=== PATIENT | male | born 1950 | race Caucasian/White ===

== ENCOUNTER 2024-03-19 06:41 | Outpatient (OUT) | payer MEDICARE, SELFPAY ==
[2024-03-19 06:59] LABS: Basophils Absolute Auto 0.1 10^3/uL (0.0-0.1); Basophils Percent Auto 1.5 % (0.2-2.0); Eosinophils Absolute Auto 0.2 10^3/uL (0.0-0.7); Hematocrit 44.5 % (42.0-54.0); Hemoglobin 14.8 g/dL (14.0-18.0); Immature Granulocytes Abs Auto 0.01 10^3/uL (0.00-0.03); Immature Granulocytes Pct Auto 0.2 % (0.0-0.5); Lymphocytes Absolute Auto 1.2 10^3/uL (1.2-3.8); Lymphocytes Percent Auto 25.6 % (20.5-60.0); Mean Corpuscular HGB Conc 33.3 g/dL (29.9-35.2); Mean Corpuscular Volume 90.1 fL (80.0-94.0); Mean Platelet Volume 11.5 fL (9.5-13.5); Monocytes Absolute Auto 0.7 10^3/uL (0.3-0.8); Neutrophils Absolute Auto 2.5 10^3/uL (1.4-6.5); Neutrophils Percent Auto 52.7 % (43.0-75.0); Platelet Count 148 10^3/uL (150-450); Red Blood Count 4.94 10^6/uL (4.70-6.10); Red Cell Distribution Width 11.9 % (11.0-15.0); White Blood Count 4.8 10^3/uL (4.0-11.0)
[2024-03-19 07:41] LABS: Alanine Aminotransferase 24 U/L (16-63); Albumin Globulin Ratio 1.4; Albumin Level 3.7 g/dL (3.4-5.0); Alkaline Phosphatase 46 U/L (46-116); Anion Gap 8.9; Aspartate Amino Transferase 23 U/L (15-37); BUN Creatinine Ratio 34.8; Bilirubin Total 0.7 mg/dL (0.2-1.0); Carbon Dioxide 31.3 mmol/L (21.0-32.0); Chloride 105 mmol/L (98-107); Chol HDL Ratio 2.9; Cholesterol 168 mg/dL (<=200); Estimated GFR (African America >60 (>=60); Estimated GFR (Non-African Ame >60 (>=60); Globulin 2.7 g/dL; Glucose 78 mg/dL (74-106); HDL Cholesterol 58 mg/dL (40-60); LDL Cholesterol Calculated 104.6 mg/dL; Potassium 4.2 mmol/L (3.5-5.1); Sodium 141 mmol/L (136-145); Thyroid Stimulating Hormone 1.832 uIU/mL (0.358-3.740); Total Protein 6.4 g/dL (6.4-8.2); Triglycerides 27 mg/dL (<=150); VLDL CHOLESTEROL 5.4 mg/dL
[2024-03-19 07:53] LABS: Estimated Average Glucose 111 mg/dL; Glycohemoglobin A1C 5.5 % (4.5-6.2)
[2024-03-19 08:39] LABS: Free T4 0.84 ng/dL (0.76-1.46)
== END 2024-03-19 06:42 | disposition home or self-care (01) ==
LOC: LAB 06:41
PROVIDERS: PCP Family Medicine; Visit Provider Family Medicine
DX: N52.9 Male erectile dysfunction, unspecified (principal); K59.00 Constipation, unspecified; E03.9 Hypothyroidism, unspecified; E78.5 Hyperlipidemia, unspecified; Z12.5 Encounter for screening for malignant neoplasm of prostate; R73.09 Other abnormal glucose
CPT/HCPCS: 36415; 80053; 80061; 83036; 84153; 84154; 84439; 84443; 85025

== ENCOUNTER 2024-05-06 06:40 | Outpatient (OUT) | payer MEDICARE, SELFPAY ==
--- OUTSIDE RECORDS SUMMARY | 2024-05-06 06:42 | XMS_ITS | CCD ---
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 Name Role Phone JEN, DR ESCAMILLA Admitting Unavailable NILL, DR ESCAMILLA Attending Unavailable NILL, DR ESCAMILLA Consulting Unavailable HOY, DR SÁNCHEZ Primary Care Unavailable HOY, DR SÁNCHEZ Primary Care Unavailable HOY, DR SÁNCHEZ Admitting Unavailable HOY, DR SÁNCHEZ Attending Unavailable HOY, DR SÁNCHEZ Consulting Unavailable HOY, DR SÁNCHEZ Primary Care Unavailable HOY, DR SÁNCHEZ Admitting Unavailable HOY, DR SÁNCHEZ Attending Unavailable HOY, DR SÁNCHEZ Consulting Unavailable NILL, DR ESCAMILLA Admitting Unavailable NILL, DR ESCAMILLA Attending Unavailable NILL, DR ESCAMILLA Consulting Unavailable HOY, DR SÁNCHEZ Primary Care Unavailable SHAIJOSIE Consulting Unavailable DIPTIKOARINA HAAS Consulting Unavailable Gonzalo Almanza Primary Care Physician Emily Wren Unavailable Unavailable MAYA GUILLAUME Attending Unavailable MAYA GUILLAUME Attending Unavailable MAYA GUILLAUME Attending Unavailable MAYA GUILLAUME Admitting Unavailable Allergies Allergy Classification Reported Allergen(s) Allergy Type Date of Onset Reaction(s) Facility (1 source) environmenetal; Translations: [environmenetal] Propensity to adverse reactions (disorder) [facility] Repository Medications Current Medications Medication Drug Class(es) Dates Sig (Normalized) Sig (Original) aspirin 81 mg delayed release oral tablet (3 sources) Platelet Aggregation Inhibitor, Nonsteroidal Anti-inflammatory Drug Start: 02-18-2020 take 1 tablet by mouth every other day aspirin 81 mg Oral EC Tab 81 mg = 1 tab(s), Oral, Every other day, Refills(s) 0 Start Date: 02/18/20 Status: Ordered Chondroitin Sulfates / Glucosamine (3 sources) Start: 02-18-2020 take 1 capsule by mouth once daily Chondroitin-Gluc osamine 1 cap(s), Oral, Daily, Refill(s) 0 Start Date: 02/18/20 Status: Ordered Diclofenac 75mg Tab-DR (3 sources) Start: 02-17-2020 take 1 tablet by mouth twice daily Diclofenac 75mg Tab-DR 75 mg, Oral, BID, Refills(s) 0 Start Date: 02/17/20 Status: Ordered diphenhydrAMINE hydrochloride 25 mg oral tablet (3 sources) Histamine-1 Receptor Antagonist Start: 02-18-2020 take 1 tablet by mouth once daily Benadryl 25 mg Tab 1 tab, Oral, Daily, Refills(s) 0 Start Date: 02/18/20 Status: Ordered famotidine 20 mg oral tablet (3 sources) Histamine-2 Receptor Antagonist Start: 02-18-2020 take 1 tablet by mouth once daily famotidine 20 mg Tab 20 mg = 1 tab(s), Oral, Daily, Refills(s) 0 Start Date: 02/18/20 Status: Ordered guaiFENesin (3 sources) Start: 02-18-2020 take 1 tablet by mouth once daily Mucinex D 1 tab(s), Oral, Daily, Refill(s) 0 Start Date: 02/18/20 Status: Ordered {2 (480 ML Magnesium Sulfate 0.0277 MEQ/ML / potassium sulfate 0.0374 MEQ/ML / sodium sulfate 0.257 MEQ/ML Oral Solution) } Pack [Suprep Bowel Prep Kit] (2 sources) Start: 12-04-2020 Suprep Bowel Prep Kit oral liquid 177 mL, Oral, As Directed for 2 dose(s), 1 kit(s), Refill(s) 0, dilute each 177 ml bottle and drink according to box directions or as directed by physician, [facility]/pharmacy #[id number], 190.5, cm, 12/04/20 11:54:00 EDT, Height/Length Dosing, 75.7, kg, 12/04/20... Start Date: 12/04/20 Status: Ordered melatonin 5 mg oral capsule (3 sources) Start: 08-06-2020 take 1 mg by mouth once daily at bedtime melatonin 5 mg oral capsule mg cap(s), Oral, Once a day (at bedtime), Refills(s) 0 Start Date: 08/06/20 Status: Ordered Multivitamin, Therapeutic w/ Minerals (3 sources) Start: 02-18-2020 take 1 tablet by mouth once daily Multivitamin, Therapeutic w/ Minerals 1 tab(s), Oral, Daily, Refill(s) 0 Start Date: 02/18/20 Status: Ordered omeprazole 20 mg oral tablet (3 sources) Proton Pump Inhibitor Start: 07-20-2016 take 20 mg by mouth once daily omeprazole 20 mg, Oral, Daily, Refills(s) 0, Control of stomach acid Start Date: 07/20/16 Status: Ordered sildenafil 100 mg oral tablet (3 sources) Phosphodiesterase 5 Inhibitor Start: 02-17-2020 take 1 tablet by mouth once daily Viagra 100 mg Tab 100 mg = 1 tab(s), Oral, Daily, 1 hour before sexual activity, Refills(s) 0 Start Date: 02/17/20 Status: Ordered tamsulosin hydrochloride 0.4 mg oral capsule (1 source) alpha-Adrenergic Antonio Start: 03-03-2022 take 1 capsule by mouth once daily Flomax 0.4 mg Cap 0.4 mg = 1 cap(s), Oral, Daily, # 90 cap(s), Refills(s) 3, Pharmacy: [id number], 190.5, cm, 08/10/21 9:33:00 EST, Height/Length Dosing, 77, kg, 08/10/21 9:33:00 EST, Weight Dosing Start Date: 03/03/22 Status: Ordered Problems Active Problems Problem Classification Problem Date Documented Da te Episodic/Chronic Allergic reactions (3 sources) Solar degeneration 04-24-2019 Episodic Anal and rectal conditions (3 sources) Perirectal abscess 05-19-2021 Episodic Blindness and vision defects (3 sources) Visual impairment 02-17-2020 Chronic Cancer of prostate (7 sources) Adenocarcinoma of prostate; Translations: [Malignant tumor of prostate] Onset: 3 04-09-2019 Chronic Cancer of prostate (5 sources) Personal history of malignant neoplasm of prostate; Translations: [History of malignant neoplasm of prostate] Onset: 1 08-01-2019 Episodic Chronic obstructive pulmonary disease and bronchiectasis (3 sources) Chronic obstructive lung disease 08-17-2016 Chronic Diverticulosis and diverticulitis (1 source) Diverticulosis of large intestine without perforation or abscess without bleeding; Translations: [DVRTCLOS LG INT NO PERF/ABSC W/O BL] Onset: 1 Chronic Esophageal disorders (3 sources) Gastroesophageal reflux disease 07-17-2019 Chronic Genitourinary symptoms and ill-defined conditions (8 sources) Nocturia; Translations: [Poor urinary stream] Onset: 1 07-17-2019 Episodic Hemorrhoids (3 sources) External hemorrhoids 02-17-2020 Episodic Hyperplasia of prostate (9 sources) Benign prostatic hyperplasia with lower urinary tract symptoms; Translations: [Benign prostatic hypertrophy with outflow obstruction] Onset: 1 08-01-2019 Chronic Neoplasms of unspecified nature or uncertain behavior (3 sources) Neoplasm of uncertain behavior of skin 04-09-2019 Episodic Noninfectious gastroenteritis (3 sources) Chronic diarrhea 02-17-2020 Episodic Other diseases of kidney and ureters (1 source) Urinary tract obstruction; Translations: [Other obstructive and reflux uropathy] Onset: 3 Episodic Other gastrointestinal disorders (1 source) Irritable bowel syndrome without diarrhea; Translations: [IRRITABLE BOWEL SYND W/O DIARRHEA] Onset: 1 Chronic Other gastrointestinal disorders (3 sources) Celiac disease 04-11-2019 Chronic Other gastrointestinal disorders (3 sources) Alteration in bowel elimination 12-04-2020 Episodic Other gastrointestinal disorders (3 sources) Decreased stool caliber 12-04-2020 Episodic Other male genital disorders (3 sources) Impotence 07-17-2019 Chronic Other male genital disorders (2 sources) Male erectile dysfunction, unspecified; Translations: [Erectile dysfunction] Onset: 3 Chronic Other male genital disorders (3 sources) History of prostatitis 04-09-2019 Episodic Other skin disorders (3 sources) Actinic keratosis 02-18-2020 Episodic Other skin disorders (3 sources) Hyperkeratosis 04-24-2019 Episodic Residual codes; unclassified (3 sources) H/O: anticoagulant therapy 07-17-2019 Episodic Screening and history of mental health and substance abuse codes (4 sources) Personal history of nicotine dependence; Translations: [Ex-smoker] Onset: 1 07-17-2019 Episodic Spondylosis; intervertebral disc disorders; other back problems (6 sources) Cervical disc disorder 04-09-2019 Chronic Unclassified (1 source) CONTACT W/AND (SUSP) EXPOS COVID-19; Translations: [CONTACT W/AND (SUSP) EXPOS COVID-19] Onset: 1 Unclassified (3 sources) Body mass index 20-24 - normal 05-18-2021 Past or Other Problems Problem Classification Problem Date Documented Da te Episodic/Chronic Other aftercare (1 source) alf (current) use of aspirin; Translations: [MCC CURRENT USE OF ASPIRIN] Onset: 12-30-2020 Episodic Other gastrointestinal disorders (4 sources) Change in bowel habit; Translations: [CHANGE IN BOWEL HABIT] Onset: 12-23-2020 Episodic Other gastrointestinal disorders (1 source) Other fecal abnormalities; Translations: [OTHER FECAL ABNORMALITIES] Onset: 12-30-2020 Episodic Results Test Name Value Interpretation Reference Range Facility Ambulatory Visit Summaryon 0 09-19-2023 Ambulatory Visit Summary SHAD OBRIEN :1950 Visit Date:09/19/2023 Ambulatory Visit Instructions Your Diagnosis Personal history of prostate cancer BPH with urinary obstruction Impotence Your Care Team Attending Physician - MAYA GUILLAUME PA-C Primary Care Physician - Gonzalo Almanza MD This Is Your Medications List Contact prescribing physician if questions or concerns aspirin (aspirin 81 mg Oral EC Tab) chondroitin-glucosamine (Chondroitin-Glucosamin e) diclofenac (Diclofenac 75mg Tab-DR) diphenhydrAMINE (Benadryl 25 mg Tab) famotidine (famotidine 20 mg Tab) guaifenesin-pseudoephed rine (Mucinex D) melatonin (melatonin 5 mg oral capsule) multivitamin with minerals (Multivitamin, Therapeutic w/ Minerals) omeprazole sildenafil (Viagra 100 mg Tab) Procedures Performed Cystoscopy with Brachytherapy implant for prostate cancer (08/17/2016), Transrectal biopsy of prostate using ultrasound (US) guidance (05/06/2016), left femur fracture with bone graft (1966), Colonoscopy, right eye surgery. Discharge Vitals Height 190 cm Height 75 in Weight 77 kg Weight 169.4 lb BMI 21.33 What to do next Scheduled Follow-Up Appointments Monday 8:20 AM EST With: MAYA GUILLAUME PA-C Where: [facility] Patient Educationon 09-19-19 Patient Education Urology Benign Prostatic Hyperplasia Benign prostatic hyperplasia (BPH) is an enlarged prostate gland that is caused by the normal aging process. The prostate may get bigger as a man gets older. The condition is not caused by cancer. The prostate is a walnut-sized gland that is involved in the production of semen. It is located in front of the rectum and below the bladder. The bladder stores urine. The urethra carries stored urine out of the body. An enlarged prostate can press on the urethra. This can make it harder to pass urine. The buildup of urine in the bladder can cause infection. Back pressure and infection may progress to bladder damage and kidney (renal) failure. What are the causes? This condition is part of the normal aging process. However, not all men develop problems from this condition. If the prostate enlarges away from the urethra, urine flow will not be blocked. If it enlarges toward the urethra and compresses it, there will be problems passing urine. What increases the risk? This condition is more likely to develop in men older than 50 years. What are the signs or symptoms? Symptoms of this condition include: ? Getting up often during the night to urinate. ? Needing to urinate frequently during the day. ? Difficulty starting urine flow. ? Decrease in size and strength of your urine stream. ? Leaking (dribbling) after urinating. ? Inability to pass urine. This needs immediate treatment. ? Inability to completely empty your bladder. ? Pain when you pass urine. This is more common if there is also an infection. ? Urinary tract infection (UTI). How is this diagnosed? This condition is diagnosed based on your medical history, a physical exam, and your symptoms. Tests will also be done, such as: ? A post-void bladder scan. This measures any amount of urine that may remain in your bladder after you finish urinating. ? A digital rectal exam. In a rectal exam, your health care provider checks your prostate by putting a lubricated, gloved finger into your rectum to feel the back of your prostate gland. This exam detects the size of your gland and any abnormal lumps or growths. ? An exam of your urine (urinalysis). ? A prostate specific antigen (PSA) screening. This is a blood test used to screen for prostate cancer. ? An ultrasound. This test uses sound waves to electronically produce a picture of your prostate gland. Your health care provider may refer you to a specialist in kidney and prostate diseases (urologist). How is this treated? Once symptoms begin, your health care provider will monitor your condition (active surveillance or watchful waiting). Treatment for this condition will depend on the severity of your condition. Treatment may include: ? Observation and yearly exams. This may be the only treatment needed if your condition and symptoms are mild. ? Medicines to relieve your symptoms, including: ? Medicines to shrink the prostate. ? Medicines to relax the muscle of the prostate. ? Surgery in severe cases. Surgery may include: ? Prostatectomy. In this procedure, the prostate tissue is removed completely through an open incision or with a laparoscope or robotics. ? Transurethral resection of the prostate (TURP). In this procedure, a tool is inserted through the opening at the tip of the penis (urethra). It is used to cut away tissue of the inner core of the prostate. The pieces are removed through the same opening of the penis. This removes the blockage. ? Transurethral incision (TUIP). In this procedure, small cuts are made in the prostate. This lessens the prostate's pressure on the urethra. ? Transurethral microwave thermotherapy (TUMT). This procedure uses microwaves to create heat. The heat destroys and removes a small amount of prostate tissue. ? Transurethral needle ablation (TUNA). This procedure uses radio frequencies to destroy and remove a small amount of prostate tissue. ? Interstitial laser coagulation (ILC). This procedure uses a laser to destroy and remove a small amount of prostate tissue. ? Transurethral electrovaporization (TUVP). This procedure uses electrodes to destroy and remove a small amount of prostate tissue. ? Prostatic urethral lift. This procedure inserts an implant to push the lobes of the prostate away from the urethra. Follow these instructions at home: ? Take bibs-vxz-vlqjkbi and prescription medicines only as told by your health care provider. ? Monitor your symptoms for any changes. Contact your health care provider with any changes. ? Avoid drinking large amounts of liquid before going to bed or out in public. ? Avoid or reduce how much caffeine or alcohol you drink. ? Give yourself time when you urinate. ? Keep all follow-up visits. This is important. Contact a health care provider if: ? You have unexplained back pain. ? Your symptoms do not get better with treatment. ? You develop side effects from the medicine (more content not included)... Normal [facility] Urology Office/Clinic Noteon 09-19-2023 Urology Office/Clinic Note Chief Complaint 1yr PSA HPI Staff 73 year old male here for 1 year with PSA. Previous DX: prostate cancer, BPH w/LUTS and impotence. S/P Brachytherapy 2017. *Weaned off of Flomax since last encounter. Viagra from PCP Denies all urinary symptoms at this time. PSA <0.1 done 09/06/23 <0.1 done 08/23/22 History of Present Illness continues to do well w/o the Flomax. no major health changes in the past year. no gross hematuria, infections, pain. Review of Systems PHQ Score Initial Depression Screen Score: 0 SCORE no fever, chills, malaise, myalgia. no rash/lesions. no chest pain, palpitations, or SOB. no abdominal pain, nausea, vomiting. no unilateral calf swelling, redness, pain Physical Exam Vitals & Measurements HT: 75 in HT: 190 cm WT: 77 kg WT: 169.4 lb BMI: 21.33 General: nontoxic, NAD Mouth: moist mucosa Lungs: normal respiratory effort Cardio: regular rate, good distal perfusion Abdomen: nondistended, no suprapubic distention or tenderness, no CVA tenderness Neurologic: Grossly normal Skin: No rashes or suspicious lesions Assessment/Plan UA completed in office today shows no microhematuria or signs of infection. 1. Personal history of prostate cancer (Z85.46: Personal history of malignant neoplasm of prostate) PSA <0.1 remains stable sp brachytherapy 2017 for GL 6, PSA 7.[address] Staton released him from his care following this past visit. pt will continue following w our office. f/u 1 yr w PSA prior Ordered: E&M of Est. Patient Low 20-29 Min 96221 PSA Total Urnls Dip Stick Auto w/o Microscopy POC 48129 2. BPH with urinary obstruction (N40.1: Benign prostatic hyperplasia with lower urinary tract symptoms) weaned off Flomax following our ov last year. has been doing well. Pt is currently taking no bladder/prostate medication and is highly satisfied with overall symptom control. No indication for treatment at this time. Continue to monitor. Ordered: E&M of Est. Patient Low 20-29 Min 34729 3. Impotence (N52.9: Male erectile dysfunction, unspecified) continues on Viagra per PCP. works well. no bothersome side effects. Ordered: E&M of Est. 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 Medications aspirin 81 mg Oral EC Tab, 81 mg= 1 tab(s), Oral, Every other day Benadryl 25 mg Tab, 1 tab, Oral, Daily Chondroitin-Glucosamine , 1 cap(s), Oral, Daily Diclofenac 75mg Tab-DR, 75 mg, Oral, BID famotidine 20 mg Tab, 20 mg= 1 tab(s), Oral, Daily melatonin 5 mg oral capsule, Oral, Once a day (at bedtime) Mucinex D, 1 tab(s), Oral, Daily Multivitamin, Therapeutic w/ Minerals, 1 tab(s), Oral, Daily omeprazole, 20 mg, Oral, Daily Viagra 100 mg Tab, 100 mg= 1 tab(s), Oral, Daily Allergies No Known Allergies Social History Alcohol - Low Risk, 07/20/2016 Substance Abuse - Denies Substance Abuse, 07/20/2016 Tobacco - Denies Tobacco Use, 07/20/2016 Former smoker, quit more than 30 days ago Tobacco Use:. Never Smokeless Tobacco Use:. Cigarettes, Stopped age 49 Years. Household tobacco concerns: No. Yes, 09/19/2023 Family History Cancer of prostate: Uncle. Immunizations Vaccine Date Status influenza virus vaccine, inactivated 06/08/2020 Recorded pneumococcal 23-valent vaccine 03/28/2019 Recorded pneumococcal 13-valent vaccine 03/23/2018 Recorded influenza virus vaccine, inactivated 06/18/2013 Recorded Lab Results Ambulatory Point of Care Results Bilirubin Urine Dipstick: Negative (09/19/23 08:40:00) Blood Urine Dipstick: Negative (09/19/23 08:40:00) Glucose Urine Dipstick: Negative (09/19/23 08:40:00) Ketones Urine Dipstick: Negative (09/19/23 08:40:00) Leukocytes Urine Dipstick: Negative (09/19/23 08:40:00) Nitrite Urine Dipstick: Negative (09/19/23 08:40:00) Protein Urine Dipstick: Negative (09/19/23 08:40:00) Specific [place] Urine Dipstick: 1.015 (09/19/23 08:40:00) Urine Appearance Urine Dipstick: C (more content not included)... Normal [facility] Comment on above: Result Comment: Elec tronically Signed By: MAYA GUILLAUME PA-C\.br\Date and Time Signed: 09/19/23 09:42 EST Consent for Treatmenton Consent for Treatment [id number] IFF Normal [facility] PSA Totalon 09-06-2023 PSA Total <0.1 Low 0.1-3.5 [facility] Comment on above: Result Comment: The concentration of PSA determined by different manufacturers can vary due to differences in assay methods and reagent specificity. Values obtained from different assay methods cannot be used interchangeably. The methodology used for this result was chemiluminescence using [employer]'s Access Hybritech PSA reagent. Performed By: #### 1 [id number] #### [facility] [address] [place] [address] CHEMISTRYOrdered By: SYSTEM SYSTEM on 08-23-2022 Prostate specific Ag [Mass/Vol] ng/mL Normal 0.1 - 3.5 ng/mL [facility] Remisol CNOVon 10-13-2021 CNOV Office Visit (RADTSA ) SHAD OBRIEN ([id number]) 1950 M Date Time Provider Department 10/13/21 10:00 AM Christi STATON During your visit today, we recorded the following information about you: Temperature Pulse Respiration Blood pressure 96.2 degrees 60/minute 16/minute 100/69 Weight 78 kg G Antoni Staton MD 10/13/2021 10:00 AM Signed Radiation Oncology - Follow Up Note PATIENT NAME: Shad Obrien PATIENT DIAGNOSIS: Prostate cancer with prior treatments, I-125 brachytherapy delivered July 2016. INTERVAL HISTORY: Doing well. Denies new problems or concerns. Chronic issues with celiac disease stable. PSA HISTORY: PSA. (no units) Date Value 08/03/2021 <0.1 07/30/2020 0.2 04/02/2019, 0.6 ALLERGIES No Known Allergies tamsulosin (FLOMAX) 0.4 mg Take 0.4 mg by mouth once daily. famotidine (PEPCID) 20 mg tablet Take 20 mg by mouth. diclofenac, EC, (VOLTAREN) 75 mg EC tablet Take 75 mg by mouth. aspirin, enteric coated (ASPIRIN, ENTERIC COATED) 81 mg EC tablet Take 81 mg by mouth. W8-ggrbodg-omxc-B6-fidelia er-FA 032-6-96-5-1.5 mg tab Take by mouth. sildenafil (VIAGRA) 100 mg tablet Take 100 mg by mouth. REVIEW OF SYSTEMS: D/N = 4/ Hematuria: none Dysuria: none Incontinence: none Urgency: none Catheter use: none Medications to aid urination: y - Total AUA Score: 6 Bowel movement frequency: 1/day Bowel movement quality: variable: Occasional constipation Blood per rectum: none Last colonoscopy: 8 y Sexual activity: Unable to maintain erections PHYSICAL EXAM: BP 100/69 Pulse 60 Temp (!) 35.7 ?C (96.2 ?F) Resp 16 Wt 78 kg (172 lb) KPS: 100 General appearance: Alert and oriented. No acute distress. Abdomen: Normal abdominal exam, Abdomen soft, non-tender. No masses, organomegaly. Rectal exam def Extremities: No deformities, edema, skin discoloration, clubbing or cyanosis. Lymph Nodes: No cervical lymphadenopathy, No supraclavicular lymphadenopathy. Skin: Skin color, texture, turgor normal, no suspicious rashes or lesions. ASSESSMENT/PLAN: Prostate cancer. Status post prostate brachytherapy 2017. Doing well with stable undetectable PSA. Continues close follow-up with Dr. Green. Given length of time with stable low PSA recommend follow-up with me on an as-needed basis. Encouraged patient to call should he have questions or concerns in the future. Signed by: Christi Staton MD cc: Gonzalo Almanza MD [address] [place] [address] Dr. Green Portions of the above note extracted and edited from previous visit as well as active information included in the EMR. Lyndsey Parker RN 10/13/2021 9:55 AM Signed AUA 6 Lyndsey Parker RN Referring Provider: Christi STATON [[id number]] Allergies As of Date: 10/13/2021 (No Known Allergies) Date Reviewed: 10/13/2021 Reviewed by: Lyndsey Parker RN - Fully Assessed Reason for Visit: Prostate Cancer [590] Primary Visit Diagnosis:Malignant neoplasm of prostate (HCC) [C61] Order(s):PSA (OUTSIDE) [[id number]] Order #: [id number] Prescriptions as of 10/13/2021 - tamsulosin (FLOMAX) 0.4 mg Take 0.4 mg by mouth once daily. - famotidine (PEPCID) 20 mg tablet Take 20 mg by mouth. - diclofenac, EC, (VOLTAREN) 75 mg EC tablet Take 75 mg by mouth. - aspirin, enteric coated (ASPIRIN, ENTERIC COATED) 81 mg EC tablet Take 81 mg by mouth. - X3-ecesovh-cwcp-B6-fidelia er-FA [id number] mg tab Take by mouth. - sildenafil (VIAGRA) 100 mg tablet Take 100 mg by mouth. Problem List As Of Date 10/13/2021 Noted Resolved Prostate cancer (HCC) [C61] 07/27/2016 Visit Notes: >> Lyndsey Parker RN Wed Oct 13, 2021 9:51 AM Status: Signed AUA 6 Lyndsey Parker RN Disposition: Return if symptoms worsen or fail to improve. Follow-up and Disposition History for Encounter Date Provider Department Center 10/13/2021 [id number] STATON JENNA HAMILTON Encounter Status:Closed by Christi STATON on 10/13/21 Normal [facility] CBC AUTO DIFFon 05-10-2021 BASO # 0.1 103/ul Normal 0.0-0.1 [facility] Comment on above: Performed By: #### C BC #### [facility] [address] [place] [address] Dr. Pietro Joseph Basophils/100 WBC (Bld) 1.0 % Normal 0.2-2.0 [facility] Comment on above: Performed By: #### C BC #### [facility] [address] [place] [address] Dr. Pietro Joseph EO # 0.2 103/ul Normal 0.0-0.7 [facility] Comment on above: Performed By: #### C BC #### [facility] [address] [place] [address] Dr. Pietro Joseph Eosinophils/100 WBC (Bld) 3.3 % Normal 0.9-7.0 [facility] Comment on above: Performed By: #### C BC #### [facility] [address] [place] [address] Dr. Pietro Joseph Erythrocyte distribution width (RBC) [Ratio] 12.0 % Normal 11.0-15.0 [facility] Comment on above: Performed By: #### C BC #### [facility] [address] [place] [address] Dr. Pietro Joseph Hematocrit (Bld) [Volume fraction] 46.2 % Normal 42.0-54.0 [facility] Comment on above: Performed By: #### C BC #### [facility] [address] [place] [address] Dr. Pietro Joseph Hemoglobin (Bld) [Mass/Vol] 14.9 g/dL Normal 14.0-18.0 [facility] Comment on above: Performed By: #### C BC #### [facility] [address] [place] [address] Dr. Pietro Joseph IG # 0.02 10e3/ul Normal 0.00-0.03 [facility] Comment on above: Performed By: #### C BC #### [facility] [address] [place] [address] Dr. Pietro Joseph IG % 0.3 % Normal 0.0-0.5 [facility] Comment on above: Performed By: #### C BC #### [facility] [address] [place] [address] Dr. Pietro Joseph LYMPH # 1.2 103/ul Normal 1.2-3.8 [facility] Comment on above: Performed By: #### C BC #### [facility] [address] [place] [address] Dr. Pietro Joseph Lymphocytes/100 WBC (Bld) 20.3 % Critically low 20.5-60.0 [facility] Comment on above: Performed By: #### C BC #### [facility] [address] [place] [address] Dr. Pietro Joseph MANUAL DIFF REQ NO Normal [facility] Comment on above: Performed By: #### C BC #### [facility] [address] [place] [address] Dr. Pietro Joseph MCH (RBC) [Entitic mass] 29.7 pg Normal 25.9-34.0 [facility] Comment on above: Performed By: #### C BC #### [facility] [address] [place] [address] Dr. Pietro Joseph MCHC (RBC) [Mass/Vol] 32.3 g/dL Normal 29.9-35.2 [facility] Comment on above: Performed By: #### C BC #### [facility] [address] [place] [address] Dr. Pietro Joseph MCV (RBC) [Entitic vol] 92.2 fL Normal 80.0-94.0 [facility] Comment on above: Performed By: #### C BC #### [facility] [address] [address] [address] Pietro Joseph MONO # 1.0 103/ul Critically high 0.3-0.8 [facility] Comment on above: Performed By: #### C BC #### [facility] [address] [address] [address] Pietro Joseph Monocytes/100 WBC (Bld) 16.4 % Critically high 1.7-12.0 [facility] Comment on above: Performed By: #### C BC #### [facility] [address] [place] [address] Dr. Pietro Joseph NEUT # 3.4 103/ul Normal 1.4-6.5 [facility] Comment on above: Performed By: #### C BC #### [facility] [address] [place] [address] Dr. Pietro Joseph Neutrophils/100 WBC (Bld) 58.7 % Normal 43.0-75.0 [facility] Comment on above: Performed By: #### C BC #### [facility] [address] [place] [address] Dr. Pietro Joseph Platelet mean volume (Bld) [Entitic vol] 12.3 fL Normal 9.5-13.5 [facility] Comment on above: Performed By: #### C BC #### [facility] [address] [place] [address] Dr. Pietro Joseph PLT 170 103/ul Normal 150-450 [facility] Comment on above: Performed By: #### C BC #### [facility] [address] [place] [address] Dr. Pietro Joseph RBC 5.01 106/ul Normal 4.70-6.10 [facility] Comment on above: Performed By: #### C BC #### [facility] [address] [place] [address] Dr. Pietro Joseph WBC 5.8 103/ul Normal 4.0-11.0 [facility] Comment on above: Performed By: #### C BC #### [facility] [address] [address] [address] Pietro Joseph LIPID PROFILEon 05-10-2021 CHOL-HDL RATIO NORM SEE BELOW Normal [facility] Comment on above: Result Comment: 3.3 - 4.4 LOW RISK 4.4 - 7.1 AVERAGE RISK 7.1 - 11.0 MODERATE RISK >11.0 HIGH RISK Performed By: #### L IPID, BMP #### [facility] [address] [address] [address] Pietro Joseph Cholesterol [Mass/Vol] 176 mg/dL Normal <=200 [facility] Comment on above: Performed By: #### L IPID, BMP #### [facility] [address] [address] [address] Pietro Joseph Cholesterol in HDL [Mass/Vol] 51 mg/dL Normal [facility] Comment on above: Performed By: #### L IPID, BMP #### [facility] [address] [address] [address] Pietro Joseph Cholesterol in LDL [Mass/Vol] 119.2 mg/dL Normal [facility] Comment on above: Performed By: #### L IPID, BMP #### [facility] [address] [address] [address] Pietro Joseph Cholesterol.total/Ch olesterol in HDL [Mass ratio] 3.5 {ratio} Normal [facility] Comment on above: Performed By: #### L IPID, BMP #### [facility] [address] [address] [address] Pietro Joseph HDL NORMAL > or = 60 mg/dl - LO W CARDIOVASCULAR RISK <40 mg/dl - HIGH CARDIOVASCULAR RISK Normal [facility] Comment on above: Performed By: #### L IPID, BMP #### [facility] [address] [address] [address] Pietro Joseph LDL CALC NORMAL SEE BELOW Normal [facility] Comment on above: Result Comment: <100 mg/dl OPTIMAL 100 - 129 mg/dl NEAR OR ABOVE OPTIMAL 130 - 159 mg/dl BORDERLINE HIGH 160 - 189 mg/dl HIGH >190 mg/dl VERY HIGH Performed By: #### L IPID, BMP #### [facility] [address] [place] [address] Dr. Pietro Joseph Triglyceride [Mass/Vol] 29 mg/dL Normal <=150 [facility] Comment on above: Performed By: #### L IPID, BMP #### [facility] [address] [place] [address] Dr. Pietro Joseph VLDL CALC 5.8 mg/dL Normal [facility] Comment on above: Performed By: #### L IPID, BMP #### [facility] [address] [place] [address] Dr. Pietro Joseph PROF CHEM 8 (BAS METB)on Anion gap [Moles/Vol] 7.3 mmol/L Normal [facility] Comment on above: Performed By: #### L IPID, BMP #### [facility] [address] [place] [address] Dr. Pietro Joseph Calcium [Mass/Vol] 9.1 mg/dL Normal 8.4-10.2 [facility] Comment on above: Performed By: #### L IPID, BMP #### [facility] [address] [place] [address] Dr. Pietro Joseph Chloride [Moles/Vol] 104 mmol/L Normal 98-107 [facility] Comment on above: Performed By: #### L IPID, BMP #### [facility] [address] [place] [address] Dr. Pietro Joseph CO2 [Moles/Vol] 31.9 mmol/L Critically high 22.0-30.0 [facility] Comment on above: Performed By: #### L IPID, BMP #### [facility] [address] [place] [address] Dr. Pietro Joseph Creatinine [Mass/Vol] 0.93 mg/dL Normal 0.66-1.25 [facility] Comment on above: Performed By: #### L IPID, BMP #### [facility] [address] [place], [place] [id number] Dr. Pietro Joseph EGFR-AF LEBANESE >60 Normal >=60 [facility] Comment on above: Performed By: #### L IPID, BMP #### [facility] [address] [place] [address] Dr. Pietro Joseph EGFR-NON AF LEBANESE >60 Normal >=60 [facility] Comment on above: Performed By: #### L IPID, BMP #### [facility] [address] [place] [address] Dr. Pietro Joseph Glucose [Mass/Vol] 74 mg/dL Normal 74-106 [facility] Comment on above: Performed By: #### L IPID, BMP #### [facility] [address] [place] [address] Dr. Pietro Joseph Potassium [Moles/Vol] 4.2 mmol/L Normal 3.4-5.0 [facility] Comment on above: Performed By: #### L IPID, BMP #### [facility] [address] [place] [address] Dr. Pietro Joseph Sodium [Moles/Vol] 139 mmol/L Normal 137-145 [facility] Comment on above: Performed By: #### L IPID, BMP #### [facility] [address] [place] [address] Dr. Pietro Joseph Urea nitrogen [Mass/Vol] 30.0 mg/dL Critically high 9.0-20.0 [facility] Comment on above: Performed By: #### L IPID, BMP #### [facility] [address] [place] [address] Dr. Pietro Joseph Urea nitrogen/Creatinine [Mass ratio] 32.3 mg/mg Normal [facility] Comment on above: Performed By: #### L IPID, BMP #### [facility] [address] [place] [address] Dr. Pietro Joseph VITAMIN D 25 OHon 05-10-2021 VIT D 25-OH 71.7 ng/mL Normal [facility] Comment on above: Performed By: #### V ITAD #### [facility] [address] [place] [address] Dr. Pietro Joseph VIT D RANGES SEE BELOW Normal [facility] Comment on above: Result Comment: <20 ng/mL Vit D deficient 20 - <30 ng/mL Vit D insufficient 30 - 100 ng/mL Vit D sufficient >100 ng/mL Potential Toxicity Performed By: #### V ITAD #### [facility] [address] [address] [address] Pietro Joseph GLYCOHEMOGLOBIN A1Con 2020 ADA RECOMMENDATION ADA THERAPEUTIC TARG ET 6.0 - 7.0 ACTION SUGGESTED > 7.0 Normal [facility] Comment on above: Performed By: #### A 1C #### [facility] [address] [address] Silva Vazquez Glucose [Mass/Vol] 123 mg/dL Normal [facility] Comment on above: Performed By: #### A 1C #### [facility] [address] [address] Silva Vazquez HbA1c (Bld) [Mass fraction] 5.9 % Normal <=6.0 [facility] Comment on above: Performed By: #### A 1C #### [facility] [address] [address] Silva Vazquez [facility] SARS-CoV-2 (COVID-19) RNA NATHALIE+probe Ql (Unsp spec) Not detected Normal NOT DETECTED [facility] Comment on above: Result Comment: This test is not yet approved or cleared by the [place] FDA. When there are no FDA-approved or cleared tests available, and other criteria are met, FDA can make tests available under an emergency access mechanism called an Emergency Use Authorization (EUA). The EUA for this test is supported by the [place] of Health and Human Service's (HHS's) declaration that circumstances exist to justify the emergency use of in vitro diagnostics for the detection and/or diagnosis of the virus that causes COVID-19. This EUA will remain in effect (meaning this test can be used) for the duration of the COVID-19 declaration justifying emergency of IVDs, unless it is terminated or revoked by FDA (after which the test may no longer be used). When diagnostic testing is negative, the possibility of a false negative should be considered in the context of a patient's recent exposures and the presence of clinical signs and symptoms consistent with SARS-CoV-2. Performed By: #### C VDTBH #### [facility] [address] [place] [address] Silva Vazquez RAPID COVID-19 ANTIGENon EUA Statement SEE BELOW Normal [facility] Comment on above: Result Comment: This test has not been FDA cleared or approved, but has been authorized by the FDA under an Emergency Use Authorization (EUA) for use by authorized laboratories certified under CLIA that meet the requirements to perform moderate or high complexity testing. This test has been authorized only for the detection of proteins from SARS-CoV-2, not for any other viruses or pathogens. The emergency use of this test is authorized for the duration of the declaration that circumstances exist justifying the authorization of emergency use of in vitro diagnostic tests for detection and/or diagnosis of Covid-19 under section 564(b)(1) of the Act, 21 U.S.C. 360bbb-3(b)(1), unless the declaration is terminated or authorization is revoked sooner. Performed By: #### C VDAG #### [facility] [address] [place] [id number] Silva Vazquez SARS-CoV-2 (COVID-19) RNA NATHALIE+probe Ql (Unsp spec) Negative Normal NEGATIVE [facility] Comment on above: Result Comment: Nega tive results are presumptive. They do not preclude infection and should not be used as the sole basis for treatment decisions. Additional confirmatory testing by a molecular method should be considered. Performed By: #### C VDAG #### [facility] [address] [place] [id number] [address] Vaz[address] Vital Signs Date Time Vital Sign Value Performing Clinician Faci lity 08-31-2022 08:58-0500 Diastolic blood pressure 82 mm[Hg] MAYA GUILLAUME [facility] 08-31-2022 08:58-0500 Heart rate 67 /min MAYA GUILLAUME [facility] 08-31-2022 08:58-0500 Systolic blood pressure 137 mm[Hg] MAYA GUILLAUME [facility] Encounters Encounter Date Encounter Type Care Provider Facility Start: 09-24-2024 ambulatory MAYAALBERTO GUILLAUME Facili ty:[facility] Start: 09-19-2023 End: 09-20-2023 ambulatory MAYA GUILLAUME Facility:[facility] Start: 09-19-2023 End: 09-19-2023 Patient encounter procedure MAYA GUILLAUME [facility] Start: 09-06-2023 End: 09-07-2023 ambulatory MAYAFRANK GUILLAUME Facility:[facility] Start: 08-31-2022 End: 08-31-2022 Patient encounter procedure MAYA GUILLAUME [facility] Start: 08-23-2022 End: 08-23-2022 Patient encounter procedure MAYA GUILLAUME [facility] Start: 05-10-2021 End: 05-11-[address] GONZALO ALMANZA Facility:[facility] Start: 03-08-2021 End: 03-09-[address] GONZALO ALMANZA Facility:[facility] Start: 12-25-2020 Encounter for preprocedural laboratory examination DR FRANCINE LI [facility] Start: 12-23-2020 End: 12-23-[address] FRANCINE LI Facility:[facility] Start: 12-21-2020 End: 12-22-[address] FRANCINE LI Facility:[facility] Start: 12-21-2020 End: 12-22-2020 Encounter for preprocedural laboratory examination DR FRANCINE LI Facility:[facility] Procedures Date Procedure Procedure Detail Performing Clinician Start: 08-17-2016 Cystoscopy with Brachytherapy implant for prostate cancer MAYA GUILLAUME Start: 05-06-2016 Transrectal biopsy o f prostate using ultrasound guidance MAYA GUILLAUME Start: 07-31-1966 left femur fracture with bone graft MAYA GUILLAUME Colonoscopy MAYA GUILLAUME right eye surgery 1 MAYA GUILLAUME Comment on above: 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 Immunizations Immunization Date Immunization Notes Care Provider Fa cility 06-08-2020 influenza virus vacc ine, unspecified formulation MAYA GUILLAUME [facility] 03-28-2019 pneumococcal polysaccharide vaccine, 23 valent MAYA GUILLAUME [facility] [place] 03-23-2018 pneumococcal conjuga te vaccine, 13 valent MAYA GUILLAUME [facility] 06-18-2013 influenza virus vacc ine, unspecified formulation MAYA GUILLAUME [place] [facility] Payers Date Payer Category Payer Private Health Insurance [facility] [id number] 1960 Medicare [id number] 1960 Self-pay 1960 Self-pay [id number] 1950 Unknown [id number] 2.16.84 [id number] 1950 Unknown [id number] 2.16.84 [id number] 1950 Unknown [id number] 2.16.8 [id number] 1950 Unknown [id number] 2.16.8 [id number] 1950 Unknown [id number] 2.16.8 [id number] Unknown [id number] 2.16.84 [id number] Unknown [id number] 2.16.84 [id number] Social History Date Type Detail Facility Start: 05-18-2021 End: 09-19-2023 Tobacco smoking status Ex-smoker (finding) [facility] Tobacco smoking status Never [facility] Sex Assigned At Male [facility] Functional Status Date Assessment Result Facility 09-19-2023 Functional Status N/A [facility] 08-31-2022 Functional Status N/A [facility] Hospital Discharge instructions 09-19-2023 Note Date & Type Note Facility 09-19-2023 Hospital Discharge instructions Patient Education 09/19/2023 09:03:36 Benign Prostatic Hyperplasia Benign Prostatic Hyperplasia Benign prostatic hyperplasia (BPH) is an enlarged prostate gland that is caused by the normal aging process. The prostate may get bigger as a man gets older. The condition is not caused by cancer. The prostate is a walnut-sized gland that is involved in the production of semen. It is located in front of the rectum and below the bladder. The bladder stores urine. The urethra carries stored urine out of the body. An enlarged prostate can press on the urethra. This can make it harder to pass urine. The buildup of urine in the bladder can cause infection. Back pressure and infection may progress to bladder damage and kidney (renal) failure. What are the causes? This condition is part of the normal aging process. However, not all men develop problems from this condition. If the prostate enlarges away from the urethra, urine flow will not be blocked. If it enlarges toward the urethra and compresses it, there will be problems passing urine. What increases the risk? This condition is more likely to develop in men older than 50 years. What are the signs or symptoms? Symptoms of this condition include: Getting up often during the night to urinate. Needing to urinate frequently during the day. Difficulty starting urine flow. Decrease in size and strength of your urine stream. Leaking (dribbling) after urinating. Inability to pass urine. This needs immediate treatment. Inability to completely empty your bladder. Pain when you pass urine. This is more common if there is also an infection. Urinary tract infection (UTI). How is this diagnosed? This condition is diagnosed based on your medical history, a physical exam, and your symptoms. Tests will also be done, such as: A post-void bladder scan. This measures any amount of urine that may remain in your bladder after you finish urinating. A digital rectal exam. In a rectal exam, your health care provider checks your prostate by putting a lubricated, gloved finger into your rectum to feel the back of your prostate gland. This exam detects the size of your gland and any abnormal lumps or growths. An exam of your urine (urinalysis). A prostate specific antigen (PSA) screening. This is a blood test used to screen for prostate cancer. An ultrasound. This test uses sound waves to electronically produce a picture of your prostate gland. Your health care provider may refer you to a specialist in kidney and prostate diseases (urologist). How is this treated? Once symptoms begin, your health care provider will monitor your condition (active surveillance or watchful waiting). Treatment for this condition will depend on the severity of your condition. Treatment may include: Observation and yearly exams. This may be the only treatment needed if your condition and symptoms are mild. Medicines to relieve your symptoms, including: ?Medicines to shrink the prostate. ?Medicines to relax the muscle of the prostate. Surgery in severe cases. Surgery may include: ?Prostatectomy. In this procedure, the prostate tissue is removed completely through an open incision or with a laparoscope or robotics. ?Transurethral resection of the prostate (TURP). In this procedure, a tool is inserted through the opening at the tip of the penis (urethra). It is used to cut away tissue of the inner core of the prostate. The pieces are removed through the same opening of the penis. This removes the blockage. ?Transurethral incision (TUIP). In this procedure, small cuts are made in the prostate. This lessens the prostate's pressure on the urethra. ?Transurethral microwave thermotherapy (TUMT). This procedure uses microwaves to create heat. The heat destroys and removes a small amount of prostate tissue. ?Transurethral needle ablation (TUNA). This procedure uses radio frequencies to destroy and remove a small amount of prostate tissue. ?Interstitial laser coagulation (ILC). This procedure uses a laser to destroy and remove a small amount of prostate tissue. ?Transurethral electrovaporization (TUVP). This procedure uses electrodes to destroy and remove a small amount of prostate tissue. ?Prostatic urethral lift. This procedure inserts an implant to push the lobes of the prostate away from the urethra. Follow these instructions at home: Take opcz-kwz-krzzdyi and prescription medicines only as told by your health care provider. Monitor your symptoms for any changes. Contact your health care provider with any changes. Avoid drinking large amounts of liquid before going to bed or out in public. Avoid or reduce how much caffeine or alcohol you drink. Give yourself time when you urinate. Keep all follow-up visits. This is important. Contact a health care provider if: You have unexplained back pain. Your symptoms do not get better with treatment. You develop side effects from the medicine you are taking. Your urine becomes very dark or has a bad smell. Your lower abdomen becomes distended and you have trouble passing urine. Get help right away if: You have a fever or chills. You suddenly cannot urinate. You feel light-headed or very dizzy, or you faint. There are large amounts of blood or clots in your urine. Your urinary problems become hard to manage. You develop moderate to severe low back or flank pain. The flank is the side of your body between the ribs and the hip. These symptoms may be an emergency. Get help right away. Call 911. Do not wait to see if the symptoms will go away. Do not drive yourself to the hospital. Summary Benign prostatic hyperplasia (BPH) is an enlarged prostate that is caused by the normal aging process. It is not caused by cancer. An enlarged prostate can press on the urethra. This can make it hard to pass urine. This condition is more likely to develop in men older than 50 years. Get help right away if you suddenly cannot urinate. This information is not intended to replace advice given to you by your health care provider. Make sure you discuss any questions you have with your health care provider. Document Revised: 02/02/2022 Document Reviewed: 02/02/2022 [employer] Patient Education 2022 [employer]. Follow Up Care 08/31/2022 09:25:51 With:AUNDREA MAYFIELD, MAYA E, URL Address: When:1 year [facility] Discharge instructions 08-31-2022 Note Date & Type Note Facility 08-31-2022 Hospital Discharg e instructions Patient Education 08/31/2022 09:59:21 Brachytherapy for Prostate Cancer, Care After Brachytherapy for Prostate Cancer, Care After This sheet gives you information about how to care for yourself after your procedure. Your health care provider may also give you more specific instructions. If you have problems or questions, contact your health care provider. What can I expect after the procedure? After the procedure, it is common to have: Trouble passing urine. Blood in the urine or semen. Constipation. Frequent feeling of an urgent need to urinate. Bruising, swelling, and tenderness of the area behind the scrotum (perineum). Bloating and gas. Fatigue. Burning or pain in the rectum. Problems getting or keeping an erection (erectile dysfunction). Nausea. Follow these instructions at home: Managing pain, stiffness, and swelling If directed, apply ice to the affected area: ?Put ice in a plastic bag. ?Place a towel between your skin and the bag. ?Leave the ice on for 20 minutes, 2 3 times a day. Try not to sit directly on the area behind the scrotum. A soft cushion can help with discomfort. Activity Do not drive for 24 hours if you were given a medicine to help you relax (sedative). Do not drive or use heavy machinery while taking prescription pain medicine. Rest as told by your health care provider. Most people can return to normal activities a few days or weeks after the procedure. Ask your health care provider what activities are safe for you. Eating and drinking Drink enough fluid to keep your urine clear or pale yellow. Eat a healthy, balanced diet. This includes lean proteins, whole grains, and plenty of fruits and vegetables. General instructions Take asaw-vnk-lxwkcab and prescription medicines only as told by your health care provider. Keep all follow-up visits as told by your health care provider. This is important. You may still need additional treatment. Do not take baths, swim, or use a hot tub until your health care provider approves. Shower and wash the area behind the scrotum gently. Do not have sex for one week after the treatment, or until your health care provider approves. If you have permanent, low-dose brachytherapy implants: ?Limit close contact with children and women for 2 months or as told by your health care provider. This is important because of the radiation that is still active in the prostate. ?You may set off radioactive sensors, such as airport screenings. Ask your health care provider for a document that explains your treatment. ?You may be instructed to use a condom during sex for the first 2 months after low-dose brachytherapy. Contact a health care provider if: You have a fever or chills. You do not have a bowel movement for 3 4 days after the procedure. You have diarrhea for 3 4 days after the procedure. You develop any new symptoms, such as problems with urinating or erectile dysfunction. You have abdomen (abdominal) pain. You have more blood in your urine. Get help right away if: You cannot urinate. There is excessive bleeding from your rectum. You have unusual drainage coming from your rectum. You have severe pain in the treated area that does not go away with pain medicine. You have severe nausea or vomiting. Summary If you have permanent, low-dose brachytherapy implants, limit close contact with children and women for 2 months or as told by your health care provider. This is important because of the radiation that is still active in the prostate. Talk with your health care provider about your risk of brachytherapy side effects, such as erectile dysfunction or urinary problems. Your health care provider will be able to recommend possible treatment options. Keep all follow-up visits as told by your health care provider. This is important. You may need additional treatment. This information is not intended to replace advice given to you by your health care provider. Make sure you discuss any questions you have with your health care provider. Document Released: 08/19/2011 Document Revised: 06/29/2018 Document Reviewed: 08/18/2017 [employer] Patient Education 2019 [employer]. Follow Up Care 08/10/2021 10:02:38 With:Peter Wilder MD, Patrick Santacruz [facility] Address: [facility] [address], [place] [id number]- When:1 year [facility] Progress note 10-13-2021 Note Date & Type Note Facility 10-13-2021 Note HNO ID: [id number] Author: Chritsi Staton MD Service: ? Author Type: Physician Type: Progress Notes Filed: 10/13/2021 10:00 AM Note Text: Radiation Oncology - Follow Up Note PATIENT NAME: Shad Obrien PATIENT DIAGNOSIS: Prostate cancer with prior treatments, I-125 brachytherapy delivered July 2016. INTERVAL HISTORY: Doing well. Denies new problems or concerns. Chronic issues with celiac disease stable. PSA HISTORY: PSA. (no units) Date Value 08/03/2021 <0.1 07/30/2020 0.2 04/02/2019, 0.6 ALLERGIES No Known Allergies tamsulosin (FLOMAX) 0.4 mg Take 0.4 mg by mouth once daily. famotidine (PEPCID) 20 mg tablet Take 20 mg by mouth. diclofenac, EC, (VOLTAREN) 75 mg EC tablet Take 75 mg by mouth. aspirin, enteric coated (ASPIRIN, ENTERIC COATED) 81 mg EC tablet Take 81 mg by mouth. [id number]-iesnuow-mwej-R1-bbcodm-BJ [id number] mg tab Take by mouth. sildenafil (VIAGRA) 100 mg tablet Take 100 mg by mouth. REVIEW OF SYSTEMS: D/N = 4/ Hematuria: none Dysuria: none Incontinence: none Urgency: none Catheter use: none Medications to aid urination: y - Total AUA Score: 6 Bowel movement frequency: 1/day Bowel movement quality: variable: Occasional constipation Blood per rectum: none Last colonoscopy: 8 y Sexual activity: Unable to maintain erections PHYSICAL EXAM: BP 100/69 Pulse 60 Temp (!) 35.7 ?C (96.2 ?F) Resp 16 Wt 78 kg (172 lb) KPS: 100 General appearance: Alert and oriented. No acute distress. Abdomen: Normal abdominal exam, Abdomen soft, non-tender. No masses, organomegaly. Rectal exam def Extremities: No deformities, edema, skin discoloration, clubbing or cyanosis. Lymph Nodes: No cervical lymphadenopathy, No supraclavicular lymphadenopathy. Skin: Skin color, texture, turgor normal, no suspicious rashes or lesions. ASSESSMENT/PLAN: Prostate cancer. Status post prostate brachytherapy 2016. Doing well with stable undetectable PSA. Continues close follow-up with Dr. Green. Given length of time with stable low PSA recommend follow-up with me on an as-needed basis. Encouraged patient to call should he have questions or concerns in the future. Signed by: Christi Staton MD cc: Gonzalo Almanza MD [id number] Green Portions of the above note extracted and edited from previous visit as well as active information included in the EMR. [facility] Clinical Note 12-23-2020 Note Date & Type Note Facility 12-23-2020 Note OPERATIVE NOTE OPERATION DATE: 12-23-20 ANESTHETIC:Monitored anesthesia care. PREOPERATIVE DIAGNOSIS:Change in bowel habits with decreased caliber of the stool. POSTOPERATIVE DIAGNOSIS:Redundant colon with spasm and moderate sigmoid diverticulosis. PROCEDURE NAME:Colonoscopy to the cecum. ESTIMATED BLOOD LOSS: Zero. INDICATIONS AND CONSENT: The patient is a 70 year-old male with recent change in bowel habits in the last five months with some decreased caliber of the stool. Indications, risks, benefits and alternatives of proceeding with colonoscopy were explained extensively to the patient including the risk of bleeding, colon perforation, anesthetic complications; all of his questions were answered and informed consent was obtained. PROCEDURE: The patient was brought to the OR and placed in the left lateral decubitus position. Monitored anesthesia care was provided. Rectal exam was performed which showed no masses or blood. The scope was inserted into the anal canal, under direct visualization it was advanced. With the aid of abdominal compression it was advanced into the cecum where cecal markings were clearly identified. Upon withdrawal of the scope mucosal surfaces were carefully examined. There was moderate sigmoid diverticulosis without inflammatory changes or scarring. There was redundancy of the colon as well as spasms. The scope was able to be advanced to the cecum where cecal markings were clearly identified. There was noted to be a good prep. Upon withdrawal of the scope, mucosal surfaces were carefully examined. There were no mass lesions or polyps. No inflammatory changes or ulceration. There was moderate sigmoid diverticulosis without inflammatory changes or scarring. The scope was retroflexed in the anal canal, there was noted to be some prominent rectal veins. No significant hemorrhoidal disease. There were some small external hemorrhoids. The scope was then withdrawn. The patient tolerated the procedure well and was taken to the Recovery Room in good condition. cc:Dr. Almanza. [facility] Signed and Approved by: DR FRANCINE LI . 12/23/2020 13:56:00 [facility] Evaluation + Plan note Laboratory Note Date & Type Note Facility Evaluation + Plan note Future Appointments Appointment Date:08/31/2022 08:45:00 AM Scheduled Provider:Brandy Ochoa MD Location:[facility] Appointment Type:URO Office Visit Future Scheduled TestsPSA Total 08/09/22 [facility] Evaluation + Plan note Laboratory Note Date & Type Note Facility Evaluation + Plan note Future Appointments Appointment Date:09/12/2023 09:00:00 AM Scheduled Provider:MAYA GUILLAUME PA-C Location:[facility] Appointment Type:URO Office Visit Diagnostic Tests PendingPSA Total 08/31/22 Future Scheduled TestsPSA Total 08/09/22 [facility] Evaluation + Plan note Note Date & Type Note Facility Evaluation + Plan note Future Appointments Appointment Date:09/24/2024 08:20:00 AM Scheduled Provider:MAYA GUILLAUME PA-C Location:[facility] Appointment Type:URO Office Visit Diagnostic Tests PendingPSA Total 09/19/23 [facility] Hospital course Narrative Note Date & Type Note Facility Hospital course Narrative No data available for this section [facility] Hospital Discharge instructions Note Date & Type Note Facility Hospital Discharge instructions No data available for this section [facility] Progress note Note Date & Type Note Facility Progress note No data available for this section [facility] Summary Purpose Family History No Family History Records FoundNo Family History Records Found No data available for this section No Family History Records Found Advance Directives No Advanced Directives Records FoundNo Advanced Directives Records FoundNo Advanced Directives Records Found Additional Source Comments (unrecognized sect ion and content) No Status Records FoundNo Status Records FoundNo Status Records Found INFORMATION SOURCE (unrecogn ized section and content) DATE CREATED AUTHOR 05/11/2021 [facility] DATE CREATED AUTHOR AUTHOR'S ORGANIZ ATION 10/19/2021 [facility] DATE CREATED AUTHOR AUTHOR'S ORGANIZ ATION 09/20/2023 Yossi Gilliam [facility] Patient Care team informatio n (unrecognized section and content) Personnel Name: Gonzalo Almanza MD Address: Address: [address] [place] [address] Name: Emily Wren MA Personnel Name: Gonzalo Almanza MD Address: Address: [address] [place] [address] Name: Emily Wren MA Personnel Name: Gonzalo Almanza MD Address: Address: [address] [place] [address] Name: Emily Wren MA FOR RECORDS PERTAINING TO PATIENTS WHO ARE OR HAVE BEEN ENROLLED IN A CHEMICAL DEPENDENCY/SUBSTANCEABUSE PROGRAM, SOME INFORMATION MAY BE OMITTED. This clinical summary was aggregated from multiple sources. Caution should be exercised in using it in the provision of clinical care. This summary normalizes information from multiple sources, and as a consequence, information in this document may materially change the coding, format and clinical context of patient data. In addition, data may be omitted in some cases. CLINICAL DECISIONS SHOULD BE BASED ON THE PRIMARY CLINICAL RECORDS. [facility]. provides no warranty or guarantee of the accuracy or completeness of information in this document.
[2024-05-06 06:50] LABS: Basophils Absolute Auto 0.1 10^3/uL (0.0-0.1); Eosinophils Absolute Auto 0.1 10^3/uL (0.0-0.7); Eosinophils Percent Auto 2.7 % (0.9-7.0); Hematocrit 43.8 % (42.0-54.0); Hemoglobin 14.7 g/dL (14.0-18.0); Immature Granulocytes Abs Auto 0.01 10^3/uL (0.00-0.03); Immature Granulocytes Pct Auto 0.2 % (0.0-0.5); Lymphocytes Absolute Auto 1.3 10^3/uL (1.2-3.8); Lymphocytes Percent Auto 24.9 % (20.5-60.0); Mean Corpuscular HGB Conc 33.6 g/dL (29.9-35.2); Mean Corpuscular Hemoglobin 30.4 pg (25.9-34.0); Mean Corpuscular Volume 90.7 fL (80.0-94.0); Mean Platelet Volume 11.1 fL (9.5-13.5); Monocytes Absolute Auto 1.1 10^3/uL (0.3-0.8); Monocytes Percent Auto 21.8 % (1.7-12.0); Neutrophils Absolute Auto 2.5 10^3/uL (1.4-6.5); Neutrophils Percent Auto 49.4 % (43.0-75.0); Platelet Count 144 10^3/uL (150-450); Red Blood Count 4.83 10^6/uL (4.70-6.10); Red Cell Distribution Width 11.9 % (11.0-15.0); White Blood Count 5.1 10^3/uL (4.0-11.0)
== END 2024-05-06 06:41 | disposition home or self-care (01) ==
LOC: LAB 06:40
PROVIDERS: PCP Family Medicine; Visit Provider Family Medicine
DX: D69.6 Thrombocytopenia, unspecified (principal)
CPT/HCPCS: 36415; 85025